=== PATIENT | female | born 1985 | race Caucasian/White ===

== ENCOUNTER 2017-04-02 16:15 | Emergency (ER) | payer SELFPAY ==
[~2017-04-02] VITALS: Ht 157.5 cm; Wt 49.0 kg
[2017-04-02] MEDS ORDERED: ACETAMINOPHEN 325 MG TAB PO ONE (17:00)
[2017-04-02] MEDS ORDERED: ONDANSETRON HCL INJ 2 MG/ML VIAL IV STA (20:08)
[2017-04-02 21:13] VITALS: BP 115/72
== END 2017-04-02 20:20 | disposition home or self-care (01) ==
LOC: FSED 16:15
DX: Z32.01 Encounter for pregnancy test, result positive (principal); R10.30 Lower abdominal pain, unspecified; R10.2 Pelvic and perineal pain
CPT/HCPCS: 36415; 76801; 84702; 96374; 99283; J2405

== ENCOUNTER 2017-06-14 04:57 | Emergency (ER) | payer MEDICARE, OTHER ==
[~2017-06-14] VITALS: Ht 157.5 cm; Wt 52.7 kg
--- OUTSIDE RECORDS SUMMARY | 2017-06-14 04:59 | XMS REPORT | Continuity of Care Document ---
Author Author [facility] Organization [facility] Address [address] [place] [address] Phone Unavailable Care Team Providers Care Logging Tractor Operator Name Role Phone NO, PCP PCP Unavailable Advance Directives Directive Response Recorded Date/Time Does the patient have an advance directive? No 04/02/17 4:46pm If yes, is advance directive on file with [facility]? No 04/02/17 4:46pm If not on file with [facility] will patient provide a copy? No 04/02/17 4:46pm Do you have a Directive to Physician? No 04/02/17 4:46pm Do you have a Medical Power of [employer]? No 04/02/17 4:46pm Do you have an out of hospital Do Not Resuscitate Order? No 04/02/17 4:46pm Do you have any special needs we should be aware of? No 04/02/17 4:46pm Do you have a support person here with you today? No 04/02/17 4:46pm Did patient receive Notice of Privacy Practices? Yes 04/02/17 4:46pm Did patient receive patient rights and responsibilities? Yes 04/02/17 4:46pm Problems No problem information available. Medications No medication information available. Social History Smoking Status Start Date Stop Date Former smoker Hospital Discharge Instructions No hospital discharge instruction information available. Plan of Care Discharge Date 04/02/17 8:20pm Disposition HOME, SELF-CARE Condition at Discharge Stable Instructions/Education Provided Prescriptions See Medication Section Additional Instructions/Education Return to the closest emergency room if symptoms worsen. Take medication as prescribed. Fill your prescription immediately after leaving the ER. Follow up with your OB at your already scheduled appointment. Functional Status No functional status information available. Allergies, Adverse Reactions, Alerts Allergen Type Severity Reaction Status Last Updated Propoxyphene Allergy Unknown Active 04/02/17 Acetaminophen Allergy Unknown Active 04/02/17 Diphenhydramine Allergy Unknown Active 04/02/17 Ketorolac Allergy Unknown Active 04/02/17 Immunizations No immunization information available. Vital Signs Acute Vital Signs Vital Response Date/Time Temperature (Fahrenheit) 98.0 degrees F (97.6 - 99.5) 04/02/2017 9:13pm Pulse Pulse Rate (adult) 76 bpm (60 - 90) 04/02/2017 9:13pm Respiratory Rate 16 bpm (12 - 24) 04/02/2017 9:13pm Blood Pressure 115/72 mm Hg 04/02/2017 9:13pm Height 5 ft 2 in 04/02/2017 4:35pm Weight 108 lb 04/02/2017 4:35pm Body Mass Index 19.8 kg/m^2 04/02/2017 4:35pm Results Laboratory Results Test Name Result Units Flags Reference Collection Date/Time Result Date/ Time Comments Human Chorionic Gonadotropin, Quant 616.16 mIU/mL H 0-10 04/02/2017 5: 25pm 04/02/2017 7:24pm Procedures No procedure information available. Encounters Encounter Location Arrival/Admit Date Discharge/Depart Date Attending Provider Departed Emergency Room [facility] 04/02/17 4:15pm 8:20pm ROBERT LOPEZ MD
[2017-06-14] MEDS ORDERED: SODIUM CHLORIDE 0.9% 1000ML 1,000 ML IV SCH (05:30)
[2017-06-14] MEDS ORDERED: ALBUTEROL0.63 MG/3 (05:41)
[2017-06-14] MEDS ORDERED: SEROQUEL25 MG PO (05:41)
[2017-06-14] MEDS ORDERED: METOCLOPRAMIDE HCL 10 MG/2ML VIAL IV ONE (05:45)
[2017-06-14 06:34] LABS: HCG,QUANTITATIVE 32418.24 mIU/mL (0-10)
[2017-06-14 08:10] VITALS: BP 105/64
== END 2017-06-14 08:20 | disposition home or self-care (01) ==
LOC: FSED 04:57
DX: R10.84 Generalized abdominal pain (principal); M54.5 Low back pain; Z33.1 Pregnant state, incidental
CPT/HCPCS: 36415; 80320; 84702; 99284; J2765